=== PATIENT | female | born 1955 | race Hispanic/Latino ===

== ENCOUNTER 2021-07-14 19:23 | Emergency (ER) | payer MEDICARE ==
--- NOTE | 2021-07-14 20:16 | Emergency Department Report ---
ED Fall HPI - General Chief Complaint: Fall Stated Complaint: FALL, LOW BACK PAIN Time Seen by Provider: 07/14/21 19:58 Source: EMS Mode of arrival: Stretcher - History of Present Illness Initial Comments: Patient presents by ambulance from a fall. She was walking out of [facility]. There was a torrential down for her as she described it. She slipped and fell. She actually went forward. Her chin caught to the handle of the shopping cart she was pushing. She then went backwards and injured her back. She is complaining of lower back pain. She states that her chin and head do not hurt. Her neck does not hurt. She denies rib pain or abdominal pain. She is complaining of pain in the lower back only. Pain does not radiate or migrate. It is a constant aching pain. It is worse with any kind of movement. She denies numbness or tingling in extremities. Has no saddle anesthesia. - Related Data Previous Rx's Medication Instructions Recorded Last Taken Type Lidocaine [Lidoderm] 1 each TP DAILY #30 patch 07/14/21 Unknown Rx Metaxalone [Skelaxin] 800 mg PO TID #9 tablet 07/14/21 Unknown Rx Allergies Allergy/AdvReac Type Severity Reaction Status Date / Time No Known Allergies Allergy Verified 07/14/21 21:34 ED Review of Systems ROS: Stated complaint: FALL, LOW BACK PAIN Other details as noted in HPI Comment: All other systems reviewed and negative Constitutional: denies: fever Eyes: denies: vision change ENT: denies: epistaxis Respiratory: denies: cough Cardiovascular: denies: chest pain Endocrine: denies: unexplained weight loss Gastrointestinal: denies: abdominal pain Genitourinary: denies: dysuria Musculoskeletal: as per HPI Skin: denies: rash Neurological: denies: headache Hematological/Lymphatic: denies: easy bruising ED Past Medical Hx - Past Medical History Previous Medical History?: Yes Hx Hypertension: Yes Hx Diabetes: Yes Additional medical history: LOW BACK PAIN - Surgical History Past Surgical History?: Yes - Family History Family history: hypertension - Medications Home Medications: Home Medications Medication Instructions Recorded Confirmed Last Taken Type Lidocaine [Lidoderm] 1 each TP DAILY #30 patch 07/14/21 Unknown Rx Metaxalone [Skelaxin] 800 mg PO TID #9 tablet 07/14/21 Unknown Rx ED Physical Exam - General Limitations: No Limitations, Other (Pulse ox noted and normal) General appearance: alert, in no apparent distress, obese - Head Head exam: Present: normocephalic, other (Submental contusion and hematoma is noted. There is no step-off or deformity. There is no midface instability.) - Eye Eye exam: Present: normal appearance, EOMI. Absent: scleral icterus - ENT ENT exam: Present: normal orophraynx, normal external ear exam - Neck Neck exam: Present: normal inspection, other (Nexus criteria negative). Absent: tenderness, meningismus - Respiratory Respiratory exam: Present: normal lung sounds bilaterally. Absent: respiratory distress - Cardiovascular Cardiovascular Exam: Present: regular rate, normal rhythm - GI/Abdominal GI/Abdominal exam: Present: soft. Absent: tenderness - Extremities Exam Extremities exam: Present: normal capillary refill, pedal edema (Bilateral) - Back Exam Back exam: Present: paraspinal tenderness (Diffuse lumbar). Absent: CVA tenderness (R), CVA tenderness (L) - Neurological Exam Neurological exam: Present: alert, oriented X3, CN II-XII intact, normal gait, other (Negative straight leg raise). Absent: motor sensory deficit - Psychiatric Psychiatric exam: Present: normal affect, normal mood - Skin Skin exam: Present: warm, dry ED Course Vital Signs 07/14/21 19:31 Temperature 98.2 F Pulse Rate 96 H Respiratory 16 Rate Blood Pressure 198/91 [Left] O2 Sat by Pulse 96 Oximetry - Reevaluation(s) Reevaluation #1: 07/14/21 20:16 X-rays ordered. Patient was removed from the backboard. Reevaluation #2: 07/15/21 00:14 X-rays are noted and the patient was discharged ED Medical Decision Making - Radiology Data Radiology results: report reviewed - Medical Decision Making Patient presented with injuries from a fall. She did not hit her head or lose consciousness. I am not concerned for subdural and epidural hematomas. She states that she is not anticoagulated. Patient had no evidence of thoracoabdominal trauma. She did complain of lower back pain. Radiographically, there is no evidence of compression fracture. She does not have neurologic symptoms or deficit that when she has cord injury or cauda equina. There is no saddle anesthesia. Critical Care Time: No Critical care attestation.: If time is entered above; I have spent that time in minutes in the direct care of this critically ill patient, excluding procedure time. ED Disposition Clinical Impression: Fall Qualifiers: Encounter type: initial encounter Qualified Code(s): W19.XXXA - Unspecified fall, initial encounter Lumbosacral strain Qualifiers: Encounter type: initial encounter Qualified Code(s): S39.012A - Strain of muscle, fascia and tendon of lower back, initial encounter Chin contusion Qualifiers: Encounter type: initial encounter Qualified Code(s): S00.83XA - Contusion of other part of head, initial encounter Disposition: HOME / SELF CARE / HOMELESS Is pt being admited?: No Condition: Stable Instructions: Muscle Strain, [id number], Contusion, [id number], Lumbosacral Strain Additional Instructions: Use ice for pain and swelling. Return for problems. Drink plenty of fluids. Use Tylenol and ibuprofen [id number] to help with pain in addition. Follow-up with your regular doctor for recheck and further management. Prescriptions: Lidocaine [Lidoderm] 1 each TP DAILY #30 patch Metaxalone [Skelaxin] 800 mg PO TID #9 tablet Referrals: PRIMARY CARE, [Primary Care Provider] - 3-5 Days
--- NOTE | 2021-07-14 21:11 | XRay Report ---
LUMBOSACRAL SPINE 3 VIEWS INDICATION / CLINICAL INFORMATION: Fall with back pain. COMPARISON: None available. FINDINGS: BONES / JOINT(S): There is advanced degenerative disc disease at L1-2 and L5-S1. There is moderate de generative disc disease at L4-5 with a vacuum disc. Mild anterior subluxation of L4 on L5 is likely d egenerative. The pedicles are intact and the SI joints are normal. I do not identify an acute fractur e. SOFT TISSUES: No significant abnormality. ADDITIONAL FINDINGS: There are several mildly prominent gas-filled small bowel loops in the central a bdomen which may just be related to a localized adynamic ileus. Signer Name: Armen Hurley MD Signed: 07/14/2021 9:07 PM Workstation Name: [id number]
[2021-07-14] MEDS ORDERED: KETOROLAC 30 MG/1 ML INJ IM ONE (22:00)
[2021-07-15 05:12] VITALS: BP 175/94
== END 2021-07-14 22:50 | disposition home or self-care (01) ==
LOC: ED 19:23
DX: S39.012A Strain of muscle, fascia and tendon of lower back, initial encounter (principal); S00.83XA Contusion of other part of head, initial encounter; I10 Essential (primary) hypertension; E11.8 Type 2 diabetes mellitus with unspecified complications; W19.XXXA Unspecified fall, initial encounter; Y93.89 Activity, other specified; Y92.89 Other specified places as the place of occurrence of the external cause; Y99.8 Other external cause status
CPT/HCPCS: 72100; 99283